=== PATIENT | female | born 1995 | race Caucasian/White ===

== ENCOUNTER 2023-05-16 14:19 | Inpatient (IN) | payer BC, MEDICAID, SELFPAY ==
[2023-05-16] VITALS (14 sets, daily range): BP systolic 103–129; BP diastolic 45–84; PULSE 75–110; RESP 16; TEMP 36.8–37.1; O2SAT 100; BMI 31.1
[2023-05-16] MEDS: OXYTOCIN 30 UNITS/NS 500 ML 30 UNITS/500 ML BAG 999 UNITS IV CONT (14:34)
--- NOTE | 2023-05-16 15:21 | PM.IMHP ---
H&P: HPI History of Present Illness Date/Time: 05/16/23 15:21 Chief Complaint: Labor Narrative: 27 y/o at 38 3/7 weeks here with contractions worsening around 1300. Water broke in car at 1400. Says she had care in [place], and that her due date was 05/27/23. No problems in . Moved to this area 2 weeks ago, has not established care here yet. Says she was taken to [place] a few days ago for false labor and was sent home. Denies drug use. Takes Wellbutrin 300 mg po daily for anxiety. History of hypothyroidism, but has not required medication in a while. She says they have been watching thyroid nodules. I am the chemical reclamation equipment operator physician for walk-in patients today. Review of Systems Review of Systems: All systems reviewed & are unremarkable except as noted in HPI and below PMFSH Past Medical History Medical History Anxiety History of hypothyroidism Surgical History Surgical History History of appendectomy History of cholecystectomy History of laparoscopy History of tonsillectomy and adenoidectomy Meds Vital Signs Vital Signs - 24 hr 05/16/23 14:42 05/16/23 14:45 05/16/23 15:00 Pulse Rate 97 95 88 Blood Pressure 125/76 129/81 125/77 05/16/23 15:15 Pulse Rate 81 Blood Pressure 121/63 Exam Const: Orientation/consciousness: patient oriented x3 Other: Well-developed, well-nourished female in no acute distress. Neck: Thyroid: thyroid normal Lymphatic: no lymphadenopathy noted (in neck, axilla or inguinal nodes) Resp: Effort & Inspection: normal respiratory effort Auscultation: clear to auscultation bilaterally Cardio: Rate: regular rate Rhythm: regular rhythm Heart sounds: S1 normal heart sound present and S2 normal heart sound present GI: Other: ABD: Soft, nontender, gravid. FHR tracing briefly obtained, normal-appearing. : General: Yes no CVA tenderness Other: Cervix completely dilated with gross ROM on admission. Back/Spine/Pelvis: Back: no CVA tenderness Skin: General skin exam: normal color and no rashes or lesions noted Neuro: General: patient oriented x3 Extrem: Other: Extremities: nontender with no edema Psych: Mental Status: mental status grossly normal Affect: normal affect Assessment and Plan Assessment and plan (1) Term : Code(s): Z34.90 - Encounter for supervision of normal , unspecified, unspecified trimester Status: Acute Assessment and Plan: A: IUP at 38 3/7 weeks with labor. P: See delivery note.
--- NOTE | 2023-05-16 15:29 | PM.OBPRVD ---
OB - Delivery Note Procedure Delivery date: 05/16/23 Procedure: Precipitous Induction method: None Delivery monitor: External FHT and External Uterine Route of delivery: Laceration Description: Perineal - 1st Degree Delivery repair: vicryl (3-0) Specimen: Yes (cord blood) Quantitative Blood Loss (ml): 200 Anesthesia type: Local (1% lidocaine) Disposition: PACU Complications: None Narrative: 27 y/o walk-in patient at 38 3/7 weeks gestation who presented to the hospital with contractions beginning at 1300. Meghann broke en route here at 1400. She arrived here at 1419 and was found to have complete dilation with gross ROM. I was called at 1422. She precipitously delivered the 's head to the perineum, followed by the body, at 1429. The placenta delivered spontaneously as well. I arrived, and on exam, a first degree midline perineal laceration was noted. This was infiltrated with 7 mL of 1% lidocaine and reapproximated using 3 0 Vicryl in interrupted figure of eight fashion. Excellent hemostasis resulted as did excellent reapproximation of the normal anatomy. Needle and instrument counts were correct. The patient was taken to recovery room in stable condition. The infant went to the nursery in stable condition. Baby Date of : 05/16/23 Time of : 14:29 Weeks of gestation at delivery: 38 Infant gender: Female Weight (pounds): 6 Weight (ounces): 15 presentation: vertex Placenta delivery description: Spontaneous score one minute: 9 score five minutes: 9
--- NOTE | 2023-05-16 15:36 | P.DS_ITS ---
DS: Admitting Diagnosis Discharge Date 05/18/23 Admitting Diagnosis IUP at term Labor DS: Discharge Diagnosis Discharge Diagnosis (1) (normal spontaneous vaginal delivery): Code(s): O80 - Encounter for full-term uncomplicated delivery Status: Acute OB - DS: Summary OB Procedures : None OB Procedures Intrapartum: Spontaneous Vag Delivery OB Procedures: : None Time Spent with Patient Time attestation: Total time spent providing and/or coordinating discharge services: Discharge Plan Discharge Attending physician on discharge: Thaddeus Gonzalez Discharging Clinician: Thaddeus Gonzalez Patient Disposition: Home, Self-Care Activity: pelvic rest Diet: regular Discharge Instructions: Nothing in the vagina for 6 weeks. Call or return if temperature above 100.4? F, increased abdominal pain, increased vaginal bleeding or any new problems. Stand Alone Forms: General Discharge Information Follow-up/Referrals: Thaddeus Gonzalez MD [Physician] - 6 Weeks Discharge Medications: New ibuprofen 600 mg tablet 600 mg PO Q6H PRN (Reason: cramps) Qty: 30 0RF Continued bupropion HCl [Wellbutrin] 100 mg Tablet 300 mg PO DAILY Date of admission: 05/16/23 14:19 Primary Care Provider: PHYSICIAN,SECURITY COMPLIANCE SPECIALIST Admitting Provider: Thaddeus Gonzalez Attending physician on admission: Thaddeus Gonzalez Condition: Stable
--- NOTE | 2023-05-16 15:48 | LDADM ---
This patient, Stacy Wilson, was admitted to Labor/Delivery/Recovery 106 on 05/16/23 at 14:19. Plans for labor, pain management and were discussed with patient. Patient/family oriented to hospital policies and general routines including ID bracelet, bed and alarms, visiting hours, pain management, procedures, bathroom and other care routines, personal items, smoking policy, room service/diet and guest tray routines, security routines, and visiting hours. Patient/Family are encouraged to report perceived risks to care and to ask questions if they do not understand what they are told or what they should do. See [facility] for further documentation.
[2023-05-16 16:28] LABS: Basophils Absolute Auto 0.1 K/mm3 (0.0-0.1); Basophils Percent Auto 0.3 % (0.2-1.2); Eosinophils Percent Auto 0.1 % (0-4.4); Hemoglobin 11.1 g/dL (12.0-15.0); Immature Granulocyte Absolute 0.07 K/mm3 (0.00-0.031); Immature Granulocyte Percent A 0.5 % (0-0.5); Lymphocytes Absolute Auto 0.99 K/mm3 (0.9-3.2); Lymphocytes Percent Auto 6.4 % (18.3-44.2); Mean Corpuscular HGB Conc 32.6 g/dl (32-36); Mean Corpuscular Volume 91.9 fl (80-100); Mean Platelet Volume 10.4 fl (7.4-10.4); Monocytes Absolute Auto 0.7 K/mm3 (0.1-0.6); Monocytes Percent Auto 4.3 % (2.6-8.5); Neutrophils Absolute Auto 13.8 K/mm3 (1.3-6.7); Neutrophils Percent Auto 88.4 % (45.5-73.1); Platelet Count Result 211 k/mm3 (150-375); Red Cell Distribution Width 12.9 % (11.5-14.5); White Blood Count 15.6 K/mm3 (4.5-10.0)
--- NOTE | 2023-05-16 17:12 | PC.NURSE ---
Patient transferred to post room #291 via wheelchair. Support person present. Oriented to unit, room, information board, rooming in, admission packet and security measures. Patient verbalizes understanding.
[2023-05-16 17:16] LABS: HIV 1/2 Ab P24 Ag Result Negative (Negative)
[2023-05-16 17:27] LABS: Rapid Plasma Reagin Non-Reactive (NonReactive)
[2023-05-16 17:29] LABS: Hepatitis B Surface Antigen Negative (Negative)
[2023-05-16 18:08] LABS: Amphetamine Screen Urine Negative (Negative); Barbiturate Screen Urine Negative (Negative); Benzodiazepines Screen Urine Negative (Negative); Cannabinoid Screen Urine Negative (Negative); Cocaine Screen Urine Negative (Negative); Methadone Screen Urine Negative (Negative); Opiate Screen Urine Negative (Negative); Phencyclidine Screen Urine Negative (Negative)
--- NOTE | 2023-05-16 18:44 | PC.NURSE ---
05/16/[address] Gonsalez called and notified mother's has been received and mother is GBS positive. No new orders received.
[2023-05-17 05:28] LABS: Hematocrit 34.6 % (37.0-47.0); Hemoglobin 11.4 g/dL (12.0-15.0)
[2023-05-17] MEDS: MULTIVIT/MIN/PREN/FOL AC/IRON TABLET 1 TAB PO (07:56)
[2023-05-17] MEDS: DOCUSATE SODIUM 100 MG CAPSULE PO (07:56)
[2023-05-17] MEDS: buPROPion HCL XL (24 HR) 150 MG TABCR 300 MG PO (07:57)
[2023-05-17] MEDS: LANOLIN (LANSINOH) 7.5 GM CREAM 1 APPLIC TOPICAL (07:57)
[2023-05-17 08:00] VITALS: BP 113/64; PULSE 80; RESP 16; TEMP 36.7; O2SAT 100
--- NOTE | 2023-05-17 09:27 | PM.OBPNVD ---
OB - PN: Subj Subjective Date/time seen: 05/17/23 09:27 Narrative: Pain OK. OB - PN: Obj Data Labs 05/17/23 05:20 Labs: Laboratory Results - last 24 hr 05/16/23 05/17/23 16:12 05:20 WBC 15.6 H RBC 3.70 L Hgb 11.1 L 11.4 L Hct 34.0 L 34.6 L MCV 91.9 MCH 30.0 MCHC 32.6 RDW 12.9 Plt Count 211 MPV 10.4 Immature Gran % (Auto) 0.5 Neut % (Auto) 88.4 H Lymph % (Auto) 6.4 L Pershing % (Auto) 4.3 Eos % (Auto) 0.1 Baso % (Auto) 0.3 Lymph # (Auto) 0.99 Pershing # (Auto) 0.7 H Eos # (Auto) 0.0 Baso # (Auto) 0.1 Abs Immat Gran (auto) 0.07 H Absolute Neuts (auto) 13.8 H Absolute Nucleated RBC 0.0 Nucleated RBC % 0.0 Urine Opiates Screen Negative Urine Methadone Screen Negative Ur Barbiturates Screen Negative Ur Phencyclidine Scrn Negative Ur Amphetamine Screen Negative U Benzodiazepines Scrn Negative Urine Cocaine Screen Negative U Cannabinoids Screen Negative RPR Non-reactive Hep Bs Antigen Negative HIV 1&2 Ab/P24 Ag 4thGn Negative Rubella IgG Antibody 20.0 Blood Type O Negative O Negative Antibody Screen Positive TNP Antibody Identification Passive Due to RH Imm Glob Antigen Identification Cancelled GEOVANNA, IgG Interpret Not Performed GEOVANNA, Poly Interpret Neg GEOVANNA, Complement Interp Not Performed Screen Negative Baby's Blood Type O pos Baby's GEOVANNA Negative Doses of RhIg Required 1 OB - PN A/P Plan day: 1 Comments: A: PPD#1, doing well. P: Routine care. Exam Psych: Other: AVSS ABD soft, nontender, fundus firm EXT nontender
[2023-05-17 13:00] VITALS: BP 114/63; PULSE 72; RESP 16; TEMP 36.5; O2SAT 98
[2023-05-17 18:45] VITALS: BP 125/65; PULSE 78; RESP 16; TEMP 36.5
[2023-05-17] MEDS: RHO(D) IMMUNE GLOBULIN 300 MCG/2 ML SYRINGE IM (19:23)
[2023-05-18] MEDS: TETANUS,DIPHTHERIA,AC PERTUSSIS ADULT (0.5 ML) BOOSTRIX IM (05:19)
[2023-05-18] MEDS: DOCUSATE SODIUM 100 MG CAPSULE PO (08:11)
[2023-05-18] MEDS: MULTIVIT/MIN/PREN/FOL AC/IRON TABLET 1 TAB PO (08:11)
[2023-05-18] MEDS: buPROPion HCL XL (24 HR) 150 MG TABCR 300 MG PO (08:11)
[2023-05-18 08:35] VITALS: BP 119/70; PULSE 70; RESP 16; TEMP 36.6; O2SAT 100
--- NOTE | 2023-05-18 08:52 | PM.OBPNVD ---
OB - PN: Subj Subjective Date/time seen: 05/18/23 08:52 Narrative: Pain OK. Would like to go home. OB - PN: Obj Data Labs 05/17/23 05:20 Labs: Laboratory Results - last 24 hr 05/17/23 05:20 Blood Type O Negative Antibody Screen TNP Screen Negative Baby's Blood Type O pos Baby's GEOVANNA Negative Doses of RhIg Required 1 OB - PN A/P Plan day: 2 Comments: A: PPD#2, doing well. P: Home to f/u 6 weeks. Exam Psych: Other: AVSS ABD soft, nontender, fundus firm EXT nontender
--- NOTE | 2023-05-18 11:58 | PC.NURSE ---
Patient discharged home with a breast pump, form completed and patient given the pink copy. Forms and copy of patient face sheet placed in office.
--- NOTE | 2023-05-18 15:51 | PC.NURSE ---
1110 Introductions were made, then consulted with patient to assess needs related to . Mother stated she has blister to right breast. Reviewed proper latch on and removal of from the breast. Gave mom Tendercare Hydrogel to assist with healing and discussed comfort measures for healing with a warm and wet washcloth to rinse breast, then leave open to air-dry as needed. Also suggested expression of milk to promote healing of the breast/nipple tissue and the use of lanolin. Reviewed good handwashing when or touching the breast/nipples to prevent infection. 1120 Mother led the conversation with her experience and plan to feed her so far and her ability to independently latch infant optimally without discomfort. Reminded parents to use good handwashing technique to prevent infection. Mother is feeding appropriately for growth of infant and understands stimulating infant to eat if needed. Infant has had appropriate feedings in the last 24 hours meets the outcomes for weight, output and jaundice at this time. Mother states she is confident to continue effectively her infant at home, when to call for assistance and denies any additional assistance or education at this time. Reinforced understanding of milk production, transition of milk, signs of adequate intake, transition of stool, prevention/relief of engorgement, responsive watching for feeding cues, the different methods of stimulating infant to breastfeed 2-3 hours after the start of the last feeding, community resources, medication information reviewed per [facility] and when to call a provider using the resource of the mom and baby guide/[facility] website. Mother voiced understanding of the education shared. Reported to the primary RN. Encouraged understanding of the benefits of skin to skin (demonstrating unwrapping and placing upright on her chest), stimulating with massage touch, changing positions to encourage wakefulness, how to watch for early feeding cues, responsive feeding, feeding on demand (aiming for 8-12 times in 24 hours, about every 2-3 hours), milk production, building/maintaining a milk supply, duration of feeding, signs of adequate intake/output and how to record on the feeding sheet. Education given to mother of how to visualize suck/swallow ratios and listen for drinking at the breast. Infant was [able/unable] to maintain latch without discomfort to mother. Nipple care reviewed with optimal latch and good positioning. Resources provided for inpatient/outpatient with [facility], and the mom/baby guide.
[2023-05-19 10:35] VITALS: BP 122/65; PULSE 81; RESP 18; TEMP 36.9; O2SAT 100
== END 2023-05-18 11:58 | disposition home or self-care (01) | DRG 807 ==
LOC: ANHLDR 15:38 → ANHOB2 17:17
PROVIDERS: Admitting Provider Obstetrics & Gynecology; Visit Provider Obstetrics & Gynecology
DX: O62.3 Precipitate labor (principal); Z37.0 Single live birth; O99.344 Other mental disorders complicating childbirth; F41.9 Anxiety disorder, unspecified; O99.284 Endocrine, nutritional and metabolic diseases complicating childbirth; E03.9 Hypothyroidism, unspecified; O70.0 First degree perineal laceration during delivery; Z3A.38 38 weeks gestation of pregnancy
CPT/HCPCS: 36415; 80307; 85014; 85018; 85025; 85461; 86592; 86703; 86762; 86850; 86880; 86900; 86901; 86902; 87340; 90384; 90715; A9270; G0432; J2590; J2790

== ENCOUNTER 2023-09-10 11:18 | Outpatient (CLI) | payer MEDICAID, SELFPAY ==
[2023-09-10 19:11] LABS: Total Triiodothyronine (T3) 1.11 NG/ML (0.97-1.69)
== END 2023-09-10 11:19 | disposition home or self-care (01) ==
LOC: ANHGOSHLAB 11:19
PROVIDERS: PCP Emergency Medicine; Visit Provider Emergency Medicine
DX: E04.1 Nontoxic single thyroid nodule (principal); R94.6 Abnormal results of thyroid function studies
CPT/HCPCS: 36415; 84439; 84443; 84480

== ENCOUNTER 2023-10-14 13:53 | Outpatient (CLI) | payer BC, SELFPAY ==
--- NOTE | ~2023-10-14 | XR_ITS ---
EXAMINATION: XR knee LT min 4V DATE: 10/14/2023 14:24 INDICATION: Unspecified tear of unspecified meniscus. TECHNIQUE: 4 views of left knee were obtained. COMPARISON: None. FINDINGS: Bone alignment is normal. No fracture. Joint spaces are normal. No knee joint effusion. IMPRESSION: 1. Normal left knee. Reviewed, dictated and finalized at location A. F LEG OPERATOR IMPRESSION: 1. Normal left knee.
== END 2023-10-14 13:54 | disposition home or self-care (01) ==
PROVIDERS: PCP Emergency Medicine; Visit Provider Orthopaedic Surgery
DX: S83.207A Unspecified tear of unspecified meniscus, current injury, left knee, initial encounter (principal)
CPT/HCPCS: 73564

== ENCOUNTER 2024-03-03 11:05 | Outpatient (CLI) | payer OTHER, SELFPAY ==
[2024-03-03 11:30] LABS: Basophils Percent Auto 1.1 % (0.2-1.2); Eosinophils Absolute Auto 0.1 K/mm3 (0-0.3); Eosinophils Percent Auto 1.3 % (0-4.4); Hemoglobin 12.8 g/dL (12.0-15.0); Immature Granulocyte Absolute 0.01 K/mm3 (0.00-0.031); Immature Granulocyte Percent A 0.3 % (0-0.5); Lymphocytes Absolute Auto 1.36 K/mm3 (0.9-3.2); Mean Corpuscular Hemoglobin 26.6 pg (26-34); Mean Platelet Volume 9.2 fl (7.4-10.4); Monocytes Absolute Auto 0.3 K/mm3 (0.1-0.6); Monocytes Percent Auto 6.9 % (2.6-8.5); Neutrophils Absolute Auto 2.1 K/mm3 (1.3-6.7); Neutrophils Percent Auto 54.4 % (45.5-73.1); Platelet Count Result 219 k/mm3 (150-375); Red Blood Count 4.82 M/mm3 (4.2-5.4); Red Cell Distribution Width 14.6 % (11.5-14.5); White Blood Count 3.8 K/mm3 (4.5-10.0)
[2024-03-03 11:40] LABS: Alanine Aminotransferase 10 U/L (6-35); Albumin Level 4.5 g/dL (3.5-5.1); Alkaline Phosphatase 54 U/L (38-126); Anion Gap 7 mmol/L (4-12); Aspartate Amino Transferase 19 U/L (14-36); Bilirubin,Total 0.8 mg/dL (0.2-1.3); Blood Urea Nitrogen 13 mg/dL (7-17); Calcium 9.2 mg/dL (8.4-10.2); Carbon Dioxide 26 mmol/L (22-30); Chloride 108 mmol/L (98-107); Cholesterol 156 mg/dL (0-200); Estimated Glomerular Filt Rate > 60; Glucose 82 mg/dL (65-110); HDL Direct 54 mg/dL; Potassium 3.9 mmol/L (3.4-5.0); Sodium 141 mmol/L (137-145); Triglycerides 66 mg/dL (<150)
[2024-03-03 11:43] LABS: Hemoglobin A1C 4.7 % (<5.7)
[2024-03-03 11:53] LABS: LDL Cholesterol Direct 94 mg/dL
== END 2024-03-03 11:06 | disposition home or self-care (01) ==
LOC: ANHLAB 11:07
PROVIDERS: PCP Emergency Medicine; Visit Provider Emergency Medicine
DX: R42 Dizziness and giddiness (principal); R73.01 Impaired fasting glucose; Z86.39 Personal history of other endocrine, nutritional and metabolic disease
CPT/HCPCS: 36415; 80053; 80061; 83036; 84443; 85025

== ENCOUNTER 2024-03-03 11:09 | Outpatient (CLI) | payer OTHER, SELFPAY ==
[2024-03-03 12:22] LABS: HIV 1/2 Ab P24 Ag Result Negative (Negative)
[2024-03-03 12:32] LABS: Hepatitis B Surface Antigen Negative (Negative)
[2024-03-03 12:38] LABS: HAV RESULT Negative (Negative); Hepatitis B Core IgM Result Negative (Negative)
[2024-03-03 12:49] LABS: Hepatitis C Virus Antibody Negative (Negative)
[2024-03-03 21:02] LABS: Rapid Plasma Reagin Non-Reactive (NonReactive)
== END 2024-03-03 11:10 | disposition home or self-care (01) ==
LOC: ANHLAB 11:10
PROVIDERS: PCP Emergency Medicine; Visit Provider Student in an Organized Health Care Education/Training Program
DX: Z11.3 Encounter for screening for infections with a predominantly sexual mode of transmission (principal)
CPT/HCPCS: 36415; 80053; 80061; 80074; 83036; 84443; 85025; 86592; 86695; 86696; 86703; G0432

== ENCOUNTER 2024-04-30 12:48 | Emergency (ER) | payer OTHER, SELFPAY ==
--- NOTE | ~2024-04-30 | XR_ITS ---
EXAMINATION: XR tibia fibula RT 2V, XR ankle RT min 3V DATE: 04/30/2024 13:18 INDICATION: Right lower leg pain post twisting injury TECHNIQUE: 1. Anteroposterior and lateral views of the right tibia and fibula were obtained. 2. Anteroposterior, oblique, mortise, and lateral views of the right ankle were obtained. COMPARISON: None. FINDINGS: Alignment is normal. No acute fracture. Small corticated ossicle at the tip of the medial malleolus w hich could represent a chronic nonunited avulsion fracture fragment or more likely. Endoscopy related to chronic deltoid ligament sprain. Joint spaces are normal. No right knee or ankle joint effusions. Soft tissues are unremarkable. IMPRESSION: 1. Small chronic ossicle at the tip the medial malleolus likely sequela of trauma. No acute osseous a bnormality at the right lower leg or ankle. Reviewed, dictated and finalized at location A. IMPRESSION: 1. Small chronic ossicle at the tip the medial malleolus likely sequela of trau ma. No acute osseous abnormality at the right lower leg or ankle.
--- NOTE | 2024-04-30 12:55 | ED.GENADULT ---
HPI - General Adult General Chief complaint: Extremity Injury, Lower Stated complaint: right ankle injury Time Seen by Provider: 04/30/24 12:50 History of Present Illness HPI narrative: Patient is a 28-year-old female who presents to the emergency department this morning complaining of right ankle pain. Patient believes that she may have rolled her ankle a few days ago as she heard a pop. She tried with fat see if the pain would go away, however, patient states that she continues to have pain that sometimes shoots up her right leg. Patient has been walking on her right foot and has been able to bear weight. She denies any additional injuries and denies any additional symptoms at this time. Related Data Allergies Allergy/AdvReac Type Severity Reaction Status Date / Time No Known Allergies Allergy Verified 04/30/24 13:08 Review of Systems Review of Systems: All systems are reviewed and are negative unless stated otherwise in the HPI. [facility] Past Medical History Medical History Anxiety Encounter for screening examination for sexually transmitted disease Endometriosis History of hypothyroidism Surgical History Surgical History History of appendectomy History of cholecystectomy History of laparoscopy History of nasal surgery Deviated septum 07/2022 History of tonsillectomy and adenoidectomy Family History Family History Grandparent Diabetes mellitus Heart disease Social History Social History Smoking status: Never smoker Alcohol intake: never Substance use: never Do You Feel Safe in your Home?: Yes Lack of Transportation: No Lack of Food: Never True Current Housing: I Have Housing Concerned About Future Housing: No Difficulty Paying Gas/Electric Bills: No Difficulty Paying for Meds: No Currently Unemployed: No Education: High School Diploma/GED Difficulty w/ Childcare or Family Care: No Living arrangements: with family Occupation/Education: occupation 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 HEENT: PERRL, no rhinorrhea, no post nasal drip, oropharynx clear. Cardiovascular: Regular rate and rhythm, no murmurs, rubs or gallops, no peripheral edema. Respiratory: Clear to auscultation bilaterally, no tachypnea, no wheezing, no rhonchi, no rubs, no respiratory distress. Abdomen: Soft, nontender, nondistended, no rebound, no guarding, no peritoneal signs. Musculoskeletal: No joint swelling or deformity, normal muscle tone, Tenderness to palpation over the posterior aspect of the right medial malleoli, no tenderness palpation at the base of the 5th metatarsal, no tenderness to palpation over the mid foot. Skin: No rashes or petechia, no signs of infection. Neurological: Alert and oriented to person, place, and time. Follows all commands. No focal deficits, speech is clear and fluent. Course Vital Signs Vital signs: Vital Signs Temperature 97.7 F 04/30/24 13:05 Pulse Rate 71 04/30/24 13:05 Respiratory Rate 18 04/30/24 13:05 Blood Pressure 111/70 04/30/24 13:05 Pulse Oximetry 100 04/30/24 13:05 Oxygen Delivery Room Air 04/30/24 13:05 Temperature 97.7 F 04/30/24 13:05 Pulse Rate 71 04/30/24 13:05 Respiratory Rate 18 04/30/24 13:05 Blood Pressure 111/70 04/30/24 13:05 Pulse Oximetry 100 04/30/24 13:05 Oxygen Delivery Room Air 04/30/24 13:05 Medical Decision Making MDM Narrative Medical decision making narrative: The patient was evaluated by myself in the emergency department. History is obtained from patient who is an independent histo
[2024-04-30 13:05] VITALS: BP 111/70; PULSE 71; RESP 18; TEMP 36.5; O2SAT 100
== END 2024-04-30 14:02 | disposition home or self-care (01) ==
PROVIDERS: Emergency Provider Emergency Medicine; PCP Emergency Medicine
DX: S93.401A Sprain of unspecified ligament of right ankle, initial encounter (principal); S82.51XA Displaced fracture of medial malleolus of right tibia, initial encounter for closed fracture; F41.9 Anxiety disorder, unspecified; E03.9 Hypothyroidism, unspecified; X50.0XXA Overexertion from strenuous movement or load, initial encounter
CPT/HCPCS: 73590; 73610; 99284

== ENCOUNTER 2024-07-15 10:25 | Emergency (ER) | payer BC, OTHER, SELFPAY ==
--- NOTE | ~2024-07-15 | CT_ITS ---
EXAMINATION: CT brain wo con DATE: 07/15/2024 11:47 INDICATION: Headache TECHNIQUE: Computed tomography (CT) of the head was performed without intravenous contrast. Sagittal and coronal reconstructions were performed. The mA was adjusted according to patient size. Iterative reconstruction technique was employed. The dose-length product was 605.33 mGy-cm. COMPARISON: None FINDINGS: No acute intracranial hemorrhage, acute infarction or abnormal extra axial fluid collection. Ventricl es are normal and symmetric. No mass/mass effect. The orbits, paranasal sinuses and mastoid air cells are normal. IMPRESSION: 1. Normal head CT. Reviewed, dictated and finalized at location B. IMPRESSION: 1. Normal head CT.
[2024-07-15 10:27] VITALS: BP 132/69; PULSE 84; RESP 16; TEMP 36.3; O2SAT 100
--- NOTE | 2024-07-15 11:14 | PC.NURSE ---
Pt reports she had a sinus infection and covid 2 weeks ago and has had headache since.
--- NOTE | 2024-07-15 11:27 | ED.HA ---
HPI - Headache General Chief Complaint: Headache Stated Complaint: headache Time Seen by Provider: 07/15/24 11:13 Source: patient Mode of arrival: ambulatory Limitations: no limitations History of Present Illness HPI Narrative: Patient is a 28-year-old female who presents to the ED with report of a headache. Patient reports she has had a fairly constant headache for the last 2 weeks. She describes it as a band around her head and radiates diffusely throughout her head. She has history of migraines when she was in high school, but states it has been over 10 years since she has had one. She has been taking Tylenol and ibuprofen at home with minimal temporary relief. Took 800mg ibuprofen around 7am this morning. Reports photophobia, phonophobia, nausea. Denies vision changes, fevers, head injury. Related Data Allergies Allergy/AdvReac Type Severity Reaction Status Date / Time No Known Allergies Allergy Verified 07/15/24 10:26 Review of Systems Review of Systems: All systems reviewed & are unremarkable except as noted in HPI. All systems reviewed & are unremarkable except as noted in HPI and below PMFSH Past Medical History Medical History Anxiety Encounter for screening examination for sexually transmitted disease Endometriosis History of hypothyroidism Right ankle pain Surgical History Surgical History History of appendectomy History of cholecystectomy History of laparoscopy History of nasal surgery Deviated septum 07/2022 History of tonsillectomy and adenoidectomy Family History Family History Grandparent Diabetes mellitus Heart disease Social History Social History Smoking status: Never smoker Alcohol intake: never Substance use: never Do You Feel Safe in your Home?: Yes Lack of Transportation: No Lack of Food: Never True Current Housing: I Have Housing Concerned About Future Housing: No Difficulty Paying Gas/Electric Bills: No Difficulty Paying for Meds: No Currently Unemployed: No Education: High School Diploma/GED Difficulty w/ Childcare or Family Care: No Living arrangements: with family Occupation/Education: occupation Additional occupation/education comments: auto parts clerk Gender identity (if verbalized by the patient): Female Spiritual care concerns: No Exam Narrative: GENERAL: Well appearing, well-nourished, non-toxic, in no acute distress. HEAD: Normocephalic, atraumatic. EYES: PERRL/EOMI, conjunctiva clear. No nystagmus. NECK: Supple. Normal ROM. No meningeal signs. RESPIRATORY: Airway patent, respirations nonlabored. Clear to auscultation bilaterally, no rales, rhonchi, wheezing. CARDIOVASCULAR: Regular rate and rhythm MUSCULOSKELETAL: Moves all extremities. No gross deformities. SKIN: Warm, dry, normal color. NEURO: A&O X3. Speech clear. Cranial nerves II-XII grossly intact. Steady gait. No ataxic movements. No focal deficits. PSYCHIATRIC: Appropriate mood and affect. Normal interaction. Course Vital Signs Vital signs: Vital Signs Temperature 97.4 F L 07/15/24 10:27 Pulse Rate 84 07/15/24 10:27 Respiratory Rate 16 07/15/24 10:27 Blood Pressure 132/69 07/15/24 10:27 Pulse Oximetry 100 07/15/24 10:27 Temperature 97.4 F L 07/15/24 10:27 Pulse Rate 80 07/15/24 14:07 Respiratory Rate 18 07/15/24 14:07 Blood Pressure 120/66 07/15/24 14:07 Pulse Oximetry 97 07/15/24 14:07 MDM - Headache MDM Narrative Medical decision making narrative: Patient's headache was not sudden in onset or maximal in severity. There are no focal neurological deficits on exam. Subarachnoid hemorrhage is felt to be unlikely at this time. CT brain negative. There is no history of fever and n
[2024-07-15] MEDS: SODIUM CHLORIDE 0.9% IV 1,000 ML 999 ML IV CONT (12:10)
[2024-07-15] MEDS: ACETAMINOPHEN 500 MG TABLET 1000 MG PO (12:11)
[2024-07-15] MEDS: METOCLOPRAMIDE HCL INJ 10 MG/2 ML VIAL IV PUSH (12:11)
[2024-07-15] MEDS: diphenhydrAMINE HCl INJ 50 MG/ML VIAL 25 MG IV PUSH (12:11)
[2024-07-15] MEDS: dexAMETHasone SOD PHOS INJ 10 MG/ML 1 ML VIAL IV PUSH (12:12)
[2024-07-15] MEDS: KETOROLAC 30 MG/ML VIAL (*BKC) IV PUSH (13:57)
[2024-07-15 14:07] VITALS: BP 120/66; PULSE 80; RESP 18; O2SAT 97
== END 2024-07-15 14:09 | disposition home or self-care (01) ==
PROVIDERS: Emergency Provider Physician Assistant; PCP Emergency Medicine
DX: G43.909 Migraine, unspecified, not intractable, without status migrainosus (principal); E03.9 Hypothyroidism, unspecified; N80.9 Endometriosis, unspecified; Z90.49 Acquired absence of other specified parts of digestive tract
CPT/HCPCS: 70450; 96361; 96374; 96375; 99284; A9270; J1100; J1200; J1885; J2765; J7030

== ENCOUNTER 2024-09-16 12:47 | Outpatient (CLI) | payer OTHER, SELFPAY ==
--- NOTE | 2024-09-16 13:00 | ECHO_ITS ---
Patient Info Name: Stacy Wilson Age: 28 years : 1995 Gender: Female Ht: 67 in Wt: 160 lbs BSA: 1.86 m2 HR: 67 bpm BP: 117 / 64 mmHg Technical Quality: Good Exam Date: 09/16/2024 1:13 PM Exam Location: Echo Lab Patient Status: Outpatient Admit Date: 09/16/2024 Staff Ordering Physician: Jarred Pearl MD Wheat Washer: Allison Jenkins RDCS Attending Provider: Jarred Pearl MD Referring Physician: Dae DING; Exam Type: CA echo doppler color flow Study Info Indications R42 - Dizziness and giddiness Complete two-dimensional, color flow and Doppler transthoracic echocardiogram is performed. Strain analysis performed. Summary 1. Complete two-dimensional, color flow and Doppler transthoracic echocardiogram is performed. 2. Left ventricular chamber dimension is normal. 3. Left ventricular systolic function is normal, estimated at 60-65%. 4. The left ventricular diastolic function is normal. 5. E/e' 5 is not elevated. 6. Global longitudinal strain is normal at -22.3%. 7. There is trace tricuspid valve regurgitation. 8. No pulmonary hypertension, estimated pulmonary arterial systolic pressure is 25 mmHg. Left Ventricle E/e' 5 is not elevated. Global longitudinal strain is normal at -22.3%. Left ventricular chamber dimension is normal. Left ventricular systolic function is normal, estimated at 60-65%. The left ventricular diastolic function is normal. Right Ventricle Right ventricular systolic function is normal and with normal TAPSE 2.3 cm. Right ventricular chamber dimension is normal. Left Atria Left atrial chamber dimension is normal. Right Atria Right atrial chamber dimension is normal. Aortic Valve The aortic valve is trileaflet. There is no aortic valve stenosis. There is no aortic valve regurgitation. Pulmonic Valve There is no pulmonic regurgitation. Mitral Valve There is no mitral valve stenosis. There is no mitral valve regurgitation. Tricuspid Valve There is trace tricuspid valve regurgitation. No pulmonary hypertension, estimated pulmonary arterial systolic pressure is 25 mmHg. Pericardium/Pleural There is no pericardial effusion. Inferior Vena Cava Normal inferior vena cava with >50% collapse upon inspiration consistent with normal right atrial pressure, 5 mmHg. Aorta The aortic root size at the sinus of Valsalva is normal. Left Ventricular Outflow Tract Name Value Normal LVOT 2D LVOT Diameter 2.0 cm LVOT Doppler LVOT Peak Gradient 4 mmHg LVOT Mean Gradient 2 mmHg LVOT VTI 20 cm LVOT VTI/AV VTI Ratio 1.1 LVOT Stroke Volume 66 ml LVOT CO 5.1 l/min LVOT CI 2.7 l/min/m2 Pulmonic Valve Name Value Normal RVOT Doppler RVOT Peak Gradient 2 mmHg PV Doppler PV Peak Gradient 4 mmHg Mitral Valve Name Value Normal MV Doppler MV Decel [place] 418 cm/s2 MV PHT 58 ms MV Area (PHT) 3.8 cm2 4.0-5.0 MV Diastolic Function MV E Peak Velocity 83 cm/s MV A Peak Velocity 50 cm/s MV E/A 1.7 MV Decel Time 199 ms Tricuspid Valve Name Value Normal TV Regurgitation Doppler TR Peak Velocity 225 cm/s TR Peak Gradient 16 mmHg Estimated PAP/RSVP RA Pressure 5 mmHg <=5 PA Systolic Pressure 25 mmHg <36 RV Systolic Pressure 25 mmHg <36 Aorta Name Value Normal Ascending Aorta Ao Root Diameter (MM) 3.1 cm Ao Root Diam Index (MM) 1.7 cm/m2 Aortic Valve Name Value Normal AV Doppler AV Peak Velocity 103 cm/s AV Peak Gradient 4 mmHg AV Mean Gradient 2 mmHg AV VTI 19 cm AV Area (Cont Eq VTI) 3.6 cm2 >=3.0 AV Area (Cont Eq Hakan) 3.1 cm2 AV Regurgitation 2D LVOT Area 3.3 cm2 Ventricles Name Value Normal LV Dimensions 2D/MM IVS Diastolic Thickness (2D) 1.0 cm 0.6-1.0 IVS Diastole Thickness (MM) 0.8 cm 0.6-0.9 LVID Diastole (2D) 3.6 cm 3.8-5.2 LVID Diastole (MM) 5.1 cm 3.8-5.2 LVIW Diastolic Thickness (2D) 0.8 cm 0.6-0.9 LVIW Diastolic Thickness (MM) 0.6 cm 0.6-0.9 LVID Systole (2D) 2.5 cm 2.2-3.5 LVID Systole (MM) 2.8 cm 2.2-3.5 LVOT Diameter 2.0 cm LV Mass (2D Cubed) 93.88 g 67.00-162.00 LV Mass Index (2D Cubed) 50 g/m2 43-95 Relative Wall Thickness (2D) 0.44 LV Mass (MM Cubed) 113.91 g 67.00-162.00 LV Mass Index (MM Cubed) 61 g/m2 43-95 Relative Wall Thickness (MM) 0.22 LV Fractional Shortening/Ejection Fraction 2D/MM LV Fractional Shortening (2D) 30 % 27-45 LV Fractional Shortening (MM) 46 % 27-45 LV EF (MM Teicholz) 77 % 54-74 LV EF (2D Teicholz) 58 % 54-74 LV Diastolic Volume (4C MOD) 61 ml LV EF (4C MOD) 60 % LV Diastolic Volume (2C MOD) 83 ml LV EF (2C MOD) 70 % LV Diastolic Volume (BP MOD) 71 ml 46-106 LV Diastolic Volume Index (BP MOD) 38 ml/m2 29-61 LV Systolic Volume (BP MOD) 25 ml 14-42 LV Systolic Volume Index (BP MOD) 13 ml/m2 8-24 LV EF (BP MOD) 65 % 54-74 LV Diastolic Length (4C) 7.6 cm LV Systolic Length (4C) 6.1 cm LV Stroke Volume (4C MOD) 37 ml Atria Name Value Normal LA Dimensions LA Dimension (MM) 3.5 cm 2.7-3.8 LA Volume (4C A-L) 28 ml LA Volume (BP A-L) 36 ml RA Dimensions RA Area (4C) 13.1 cm2 <=18.0 EchoPAC Name Value Normal AutoEF LVCO_BiP_Q (Wnnb8HLS) 4.1 l/min LVEF_BiP_Q (Bsac0VJV) 63 % LVSV_BiP_Q (Ilod2ZSH) 60 ml LVVED_BiP_Q (Oclq9HGH) 95 ml LVVES_BiP_Q (Pgtf9VEC) 36 ml HR_4Ch_Q (Btuo9ECX) 77 bpm LVCO_4Ch_Q (Kobo9EVT) 3.6 l/min LVEF_4Ch_Q (Rjmo6MOX) 56 % LVLd_4Ch_Q (Huvt1XUS) 8.0 cm LVLs_4Ch_Q (Zglw6ELX) 6.2 cm LVSV_4Ch_Q (Ummx0BZA) 47 ml LVVED_4Ch_Q (Yisb6LLX) 83 ml LVVES_4Ch_Q (Vqgt1ETD) 36 ml HR_2Ch_Q (Wgjq1ZVB) 60 bpm LVCO_2Ch_Q (Reqp0NMC) 4.6 l/min LVEF_2Ch_Q (Haas3PVU) 69 % LVLd_2Ch_Q (Buts8CUY) 8.1 cm LVLs_2Ch_Q (Fjyd1PAM) 6.1 cm LVSV_2Ch_Q (Ousj3IXH) 76 ml LVVED_2Ch_Q (Yean0TTC) 111 ml LVVES_2Ch_Q (Eayp6LUW) 35 ml YELENA AA peak sys SL (AWMA) 28.5 % AAS peak sys SL (AWMA) 26.9 % AI peak sys SL (AWMA) 36.5 % AL peak sys SL (AWMA) 22.8 % AP peak sys SL (AWMA) 29.5 % peak sys SL (AWMA) 23.2 % AVC (AWMA) 380 ms BA peak sys SL (AWMA) 18.3 % BAS peak sys SL (AWMA) 14.7 % BI peak sys SL (AWMA) 24.0 % BL peak sys SL (AWMA) 16.4 % BP peak sys SL (AWMA) 20.7 % BS peak sys SL (AWMA) 16.1 % G peak SL(A2C) (AWMA) 26.1 % G peak SL(A4C) (AWMA) 19.4 % G peak SL(APLAX) (AWMA) 21.7 % G peak SL(Avg) (AWMA) 22.4 % MA peak sys SL (AWMA) 23.5 % MAS peak sys SL (AWMA) 19.4 % ME peak sys SL (AWMA) 26.0 % ML peak sys SL (AWMA) 18.7 % MP peak sys SL (AWMA) 20.5 % MS peak sys SL (AWMA) 22.4 % Report Signatures
== END 2024-09-16 12:48 | disposition home or self-care (01) ==
LOC: ANHCARD 12:50
PROVIDERS: PCP Emergency Medicine; Visit Provider Emergency Medicine
DX: R42 Dizziness and giddiness (principal)
CPT/HCPCS: 93306

== ENCOUNTER 2025-07-24 22:31 | Emergency (ER) | payer OTHER, SELFPAY ==
--- OUTSIDE RECORDS SUMMARY | 2022-12-02 07:59 | XMS_ITS | Continuity of Care Document ---
Author Organization [facility] Address [address] [place] [address] Phone Care Team Providers Care Aesthetician Name Role Phone Paolo Waters Unavailable Unavailable Procedures Procedure Date Offic/outpt E&m Estab Mod-hi 2 22 Services provided in an urgent care [facility] er Flu Rapid Immunoas; Flu Rapid Immunoas; Quidel Mara 2 SARS Antigen STEPH test Oct Offic/outpt E&m Estab Mod-hi 2 22 Services provided in an urgent care [facility] er Quidel Mara 2 SARS Antigen STEPH test Sep Flu Rapid Immunoas; Flu Rapid Immunoas; Offic/outpt E&m Estab Low-mod 2 Services provided in an urgent care cent er Quidel Mara 2 SARS Antigen STEPH test Jul Offic/outpt E&m Estab Mod-hi 2 22 Services provided in an urgent care cent er Offic/outpt E&m Estab Low-mod 2 Services provided in an urgent care cent er Offic/outpt E&m Estab Low-mod 2 Services provided in an urgent care cent er Quidel Mara 2 SARS Antigen STEPH test May Offic/outpt E&m Estab Low-mod 2 Services provided in an urgent care [facility] er Offic/outpt E&m Estab Low-mod 2 Services provided in an urgent care [facility] Office Visit Agt-immunassay Dir Obs; Strep 2 COVID-19 In House Handl/convey Specmn-offic To L 22 Offic/outpt E&m Estab Low-mod 2 Services provided in an urgent care [facility] Office Visit 022 Inj Ketorolac Tromethamine Per 15 Mg Jan Therapeutic, Prophylactic, Or Diagnostic Inj Sub Q Offic/outpt E&m Estab Mod-hi 22 Services provided in an urgent care [facility] Office Visit [facility] Indivdual Enrollment COVID-19 In House Offic/outpt E&m Estab Low-mod 1 Services provided in an urgent care [facility] er COVID-19 In House Offic/outpt E&m Estab Mod-hi 2 21 Services provided in an urgent care [facility] er Handl/convey Specmn-offic To L 20 Offic/outpt E&m Estab Mod-hi 2 20 Services provided in an urgent care [facility] er Offic/outpt E&m New Mod Sever 9 Services provided in an urgent care [facility] er Advance Directives Directive Yes / No Effective Date File Name No Information Encounters Encounter Description Practice Location Reason(s) For Visit Diagnoses Date Provider Providers Copied on Encounter [facility], [address], [place], [place], [id number] , [place] tel:[phone] [facility] No Information 3 Heath GUILLEN Paolo. [address], [address], [place], [place], [id number], [place]. tel:[phone] [facility], [address], [place], [place], [id number] , [place] tel: [phone] [facility] Pain in throat 3 No Information Offic/outpt E&m Estab Mod-hi 2 [facility], [address], [place], [place], [id number] , [place] tel: [phone] [facility] Congestion/ rhinitis (chief complaint) URI with cough and congestion 2 Green THREAD GRINDER Bernie. [address], [place], [place], [id number], [place]. tel:[phone] Referring Provider: Bernie GUILLEN, [address], [place], [place], [address] [place] [address] . tel:[phone] Offic/outpt E&m Estab Mod-wi 2 [facility], [address], [place], [place], [id number] , [place] tel: [phone] [facility] COVID-19 Evaluation (chief complaint) Cough, unspecifiedCon tact with and (suspected) exposure to COVID-19Influe nza A 2 Green THREAD GRINDER Bernie. [address], [place], [place], [address] [place] [address], [place]. tel:[phone] Referring Provider: Bernie GUILLEN, [address], [place], [place], [address] [place] [address] . tel:[phone] Offic/outpt E&m Estab Low-mod [facility], [address], [place], [place], [id number] , [place] tel: [phone] [facility] COVID-19 Evaluation (chief complaint) Contact with and (suspected) exposure to COVID-19Acute coughViral infection 2 Joe THREAD GRINDER Paolo. [address], [place], [address], [place]. tel:[phone] Referring Provider: Paolo GUILLEN, [address], [place], [address] . tel:[phone] Offic/outpt E&m Estab [facility] 2 [facility], [address], [place], [place], [id number] , [place] tel: [phone] [facility] COVID-19 Evaluation (chief complaint) Contact with and (suspected) exposure to COVID-19COVID- 19 2 Heath Boone. [address], [address], [place], [place], [address], [place]. tel:[phone] Referring Provider: Paolo GUILLEN, [address], [place], [address] . tel:[phone] Offic/outpt E&m Estab [facility], [address], [place], [place], [id number] , [place] tel: [phone] [facility] Sinusitis, bacterialOther specified bacterial agents as the cause of diseases classified elsewhere 2 No Information Offic/outpt E&m Estab [facility], [address], [place], [place], [address] , [place] tel: [phone] [facility] Vaginal bleeding (chief complaint) DysmenorrheaNa usea 2 John Gibbs. [address], [address], [place], [place], [address], [place]. tel:[phone] Referring Provider: Bernie GUILLEN, [address], [place], [address] . tel:[phone] Offic/outpt E&m Estab [facility], [address], [place], [place], [id number] , [place] tel: [phone] [facility] COVID-19 Evaluation (chief complaint) Contact with and (suspected) exposure to COVID-19 May- 2 Heath GUILLEN Paolo. [address], [place], [address], [place]. tel:[phone] Referring Provider: Paolo Heath GUILLEN, [address], [place], [address] . tel:[phone] Offic/outpt E&m [facility], [address], [place], [place], [address] , [place] tel: [phone] [facility] Sinus symptoms (chief complaint) Acute allergic rhinitis 2 No Information Offic/outpt E&m [facility], [address], [place], [place], [address] , [place] tel: [phone] [facility] congestion/ rhinitis (chief complaint) Nasal congestionVira l URI 2 No Information Offic/outpt E&m [facility] [facility], [address], [place], [place], [address] , [place] tel: [phone] [facility] Congestion/ rhinitis (chief complaint) Sinusitis, bacterialOther specified bacterial agents as the cause of diseases classified elsewhereGener alized headaches 2 John GUILLEN Bernie. [address], [place], [address], [place]. tel:[phone] Referring Provider: Bernie GUILLEN, [address], [place], [address] . tel:[phone] Offic/outpt E&m [facility], [address], [place], [place], [address] , [place] tel: [phone] [facility] COVID-19 Evaluation (chief complaint) Contact with and (suspected) exposure to covid-19Acute non-recurrent pansinusitis 1 No Information Offic/outpt E&m Estab Mod-hi 2 [facility], [address], [place], [place], [id number] , [place] tel:[phone] [facility] COVID-19 Evaluation (chief complaint) Contact with and (suspected) exposure to covid-19 1 Heath BECKERP Paolo. [address], [place], [place], [address], [place]. [phone] Offic/outpt E&m [facility] 2 [facility], [address], [place], [place], [id number] , [place] tel: [phone] [facility] COVID-19 Evaluation (chief complaint) COVID-19 virus test result unknownAcute non-recurrent maxillary sinusitis 0 No Information Offic/outpt E&m [facility], [address], [place], [place], [address] , [place] tel:[phone] [facility] Abdominal pain (chief complaint) Abdominal pain affecting pregnancyUnspe cified abdominal pain 9 Heath BECKERP Paolo. [address], [facility] [address], [place], [address], [place]. tel:[phone] Family History Family Member Type Diagnosis Age At Onset No Information Payers Payer name Insurance type Covered republican ID Authoriza tion(s) No Information Social History Type Description Quantity Date Captured Comments Alcohol Use Details Unknown Caffeine Use Details Unknown Tobacco Use Status No Information Smoking Status No Information Sex Female Chief Complaint And Reason For Visit No Information Reason For Referral Reason For Referral No Information Plan Of Treatment Date Type Action Status Referral Ordered: Referrals: Emergency Medicine. Evaluate and treat ordered Patient Education Viral Respirat ory Infection: Care Instructions completed Patient Education Influenza (Flu): Care I nstructions completed Patient Education Coronavirus Di sease (COVID-19): Care Instructions completed Patient Education Painful Menstr ual Cramps: Care Instructions completed Patient Education Viral Respirat ory Infection: Care Instructions completed Patient Education Sinusitis: Care Instruc tions completed Future Order: Lab Order Culture, throat ([id number]), Collected on: , Sent on: Sent History Of Present Illness Encounter Date Complaint History Of Prese nt Illness Congestion/rhinitis Onset: sudde n. Severity: mild-moderate. The patient describes the cough as non-productive. It occurs persistently. The problem has not changed. There are no aggravating factors. There are no relieving factors. Associated symptoms include cough, fatigue and nasal congestion. Pertinent negatives include chills, dyspnea, dyspnea on exertion, epistaxis, fever, heartburn, hemoptysis, hoarseness, night sweats, pleuritic pain, post-nasal drainage, rhinitis, rhinorrhea, sinus pressure, sore throat, weight loss and wheezing. COVID-19 Evaluation Onset of sym ptoms was suddenly. The duration is 5 Days. Symptoms are mild-moderate. Recently the condition has no change. Episodes occur daily. The patient notes steady. Context: No known exposure to COVID-19 but lives in a community w/known transmission. The patient presents with chills, cough, fatigue, myalgia, nasal congestion and runny nose. The patient does not present with abdominal pain, anorexia, arthralgia, back pain, diarrhea, fever, generalized weakness, headache, loss of smell, lymphadenopathy, nausea, shortness of breath, sore throat, change in taste or vomiting. She denies a history of Age > 65, BMI > 40, Cardiovascular disease, Chronic kidney disease, Chronic lung disease, Immunocompromised, Hypertension, Diabetes, Travel. Denies aggravating factors. The symptom(s) is/are relieved by rest. COVID-19 Evaluation Onset of sym ptoms was suddenly. The duration is 2 Days. Symptoms are mild-moderate. Episodes occur daily. The patient notes fluctuating. Context: No known exposure to COVID-19 but lives in a community w/known transmission. The patient presents with cough, myalgia, nasal congestion, nausea and runny nose. The patient does not present with abdominal pain, anorexia, arthralgia, back pain, chills, diarrhea, fatigue, fever, generalized weakness, headache, loss of smell, lymphadenopathy, shortness of breath, sore throat, change in taste or vomiting. She denies a history of Age > 65, BMI > 40, Cardiovascular disease, Chronic kidney disease, Chronic lung disease, Immunocompromised, Hypertension, Diabetes, Travel. Denies aggravating factors. Denies relieving factors. COVID-19 Evaluation Onset of sym ptoms was suddenly. The duration is 4 Days. Symptoms are mild-moderate. Episodes occur daily. The patient notes fluctuating. Context: Known exposure to COVID-19 at work/school. The patient presents with cough, headache, myalgia, nasal congestion, runny nose and shortness of breath. The patient does not present with abdominal pain, anorexia, arthralgia, back pain, chills, diarrhea, fatigue, fever, generalized weakness, loss of smell, lymphadenopathy, nausea, sore throat, change in taste or vomiting. She denies a history of Age > 65, BMI > 40, Cardiovascular disease, Chronic kidney disease, Chronic lung disease, Immunocompromised, Hypertension, Diabetes, Travel. Symptom is aggravated by mild activity (eg. walking). Denies relieving factors. Vaginal bleeding Onset: sudden. Severity level is mild-moderate clot(s). Duration is 3 Days. Location/source of the bleeding is uterine. The client describes it as clotting. The problem is chronic. Denies aggravating factors. Denies relieving factors. Associated symptoms include abdominal pain, cramps and nausea. Pertinent negatives include back pain, bloating, bruising, constipation, diarrhea, dizziness, dyspnea, fatigue, headache, pallor, pelvic pain and swelling. 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 REPORTS THIS PERIOD IS SIMILIAR TO OTHERS. PT REQUESTING WORK NOTE, AND NAUSEA MEDICATION. PT REPORTS ONLY USING MUSCLE RELAXER AND HEATING PAD AT NIGHT. NOT TAKING TYLENOL OR IBUPROFEN. COVID-19 Evaluation Onset of sym ptoms was suddenly. The duration is 1 Day. Symptoms are mild-moderate. Episodes occur daily. The patient notes fluctuating. Context: Known exposure to COVID-19 at work/school and Sent by employer for testing. The patient presents with headache. The patient does not present with abdominal pain, anorexia, arthralgia, back pain, chills, cough, diarrhea, fatigue, fever, generalized weakness, loss of smell, lymphadenopathy, myalgia, nasal congestion, nausea, runny nose, shortness of breath, sore throat, change in taste or vomiting. She denies a history of Age > 65, BMI > 40, Cardiovascular disease, Chronic kidney disease, Chronic lung disease, Immunocompromised, Hypertension, Diabetes, Travel. Denies aggravating factors. The symptom(s) is/are relieved by nsaid. Sinus symptoms The client prese nts with symptoms that began gradually and have lasted 3 Days. Today the client complains of fatigue and sinus pain. Associated symptoms include chronic cough, nasal congestion and sinus pressure. Pertinent negatives include cough, fatigue, fever and nasal drainage. Comments: Lakesha ram reports she is considering sinus surgery and reports last year she was treated 7x for a sinus infection.She still does not have fever, mucopurulence, facial swelling or indications for bacterial source, discussed need for antihistamines, saline washes and decongestants Comments: Woke u p feeling like razor blades in nose and throat, feels congested, headache. Denies fever, dyspnea or cough. 1 day of symptomsFeels sleepy, achy and not well congestion/rhinitis Onset: sudde n. Severity: moderate. There is no cough present. The problem has not changed. Associated symptoms include nasal congestion, rhinorrhea and sore throat. Pertinent negatives include cough, fatigue and fever. Congestion/rhinitis Onset: 5 day s ago. Severity: mild-moderate. There is no cough present. It occurs persistently. The problem has become gradually worse. There are no aggravating factors. There are no relieving factors. Associated symptoms include nasal congestion and sinus pressure. Pertinent negatives include chills, cough, dyspnea, fatigue, fever and wheezing. 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 PT STATES THAT HER HEADACHES AND PALPITATIONS OFTEN HAPPEN TOGETHER. PT REPORTS ALLERGIES BUT THAT HER CONGESTION GOT CONSIDERABLY WORSE THIS 5 DAYS. COVID-19 Evaluation Onset of sym ptoms was gradually. Context: No known exposure to COVID-19 but lives in a community w/known transmission. The patient presents with loss of smell and change in taste. The patient does not present with abdominal pain, anorexia, arthralgia, back pain, chills, cough, diarrhea, fatigue, fever, generalized weakness, headache, lymphadenopathy, myalgia, nasal congestion, nausea, runny nose, shortness of breath, sore throat or vomiting. Denies aggravating factors. The symptom(s) is/are relieved by rest. COVID-19 Evaluation Onset of sym ptoms was gradually. The duration is 3 Days. Symptoms are mild-moderate. Episodes occur daily. The patient notes fluctuating. Context: No known exposure to COVID-19 but lives in a community w/known transmission. The patient presents with cough, headache, nasal congestion, runny nose and sore throat. The patient does not present with abdominal pain, anorexia, arthralgia, back pain, chills, diarrhea, fatigue, fever, generalized weakness, loss of smell, lymphadenopathy, myalgia, nausea, shortness of breath, change in taste or vomiting. She denies a history of Age > 65, BMI > 40, Cardiovascular disease, Chronic kidney disease, Chronic lung disease, Immunocompromised, Hypertension, Diabetes, Travel. Denies aggravating factors. The symptom(s) is/are relieved by rest. COVID-19 Evaluation Onset of sym ptoms was gradually. Context: No known exposure to COVID-19 but lives in a community w/known transmission. The patient presents with cough, headache, nasal congestion and runny nose. The patient does not present with abdominal pain, anorexia, arthralgia, back pain, chills, diarrhea, fatigue, fever, generalized weakness, loss of smell, lymphadenopathy, myalgia, nausea, shortness of breath, sore throat, change in taste or vomiting. Denies aggravating factors. The symptom(s) is/are relieved by rest. Abdominal pain Onset: sudden. S everity is moderate. Duration is 1 Day. It occurs randomly. The problem is worse. Location is LLQ, RLQ. There is no radiation. The patient describes it as sharp. Context: no pattern noted. Denies aggravating factors. Relieving factors include change in position. Additional information: PT REPORTS THAT SHE HAD A POSITVE HCG TEST AT HOME. SHE DENIES VAGINAL BLEEDING BUT CRAMP IS WORSE THAN MENSTRAL CRAMP. Abdominal pain (comments) PT REP ORTS HER LAST MENSES WAS IN JUNE. SHE WAS ON DEPO LAST INJECTION IN MARCH I THINK. Functional Status Date Functional Assessmen t No Information Instructions Date Instruction Additional Infor brittany EDUCATIONAL HANDOUT PROVIDED. ALWAYS GO BY BAT LATHE OPERATOR DIRECTIONS FOR OTC MEDICATIONS. Related to URI with cough and congestion EDUCATIONAL HANDOUT PROVIDED. Re lated to Influenza A There is no cure for the common cold. Antibiotics may be used to treat signs of a secondary infection, but they do not treat the cold virus. Get plenty of rest. Drink plenty of fluids, at least 8 large glasses of fluid a day. Use salt water gargle, cough drops or throat sprays to relieve throat pain. Use saline nose drops or spray to help ease congestion. Take over the counter medicines as needed to ease your signs. Common medicines used to treat signs of a cold include: Antihistamines can dry secretions in your nose and lungs. Decongestants: Use nasal spray decongestants for up to three days only. Longer use can make congestion worse. Talk to your pharmacist before use if you have high blood pressure, , heart disease, diabetes or an enlarged prostate. Cough suppressant, such as dextromethorphan. Expectorant, sometimes called mucolytic, such as guaifenesin. Honey outperforms many of the over the counter cough supressants Related to Acute cough IF YOU ARE POSITIVE, BASED ON NEW CDC GUIDELINES, ISOLATE AT LEAST 5 DAYS FROM SYMPTOM ONSET. ONCE NO FEVERS FOR 24 HOURS WITHOUT MEDICATIONS AND SIGNIFICANT IMPROVEMENT IN RESPIRATORY SYMPTOMS (COUGH AND CONGESTION).REST. INCREASE FLUIDS. TYLENOL AND IBUPROFEN NEEDED FOR FEVERS OR BODY ACHES. MAY TAKE AN OVER THE COUNTER COUGH MEDICATION SUCH DELSYM OR MUCINEX DM NEEDED. GENERIC IS OK. MAY TAKE AN OVER THE COUNTER DECONGESTANT (ONE THAT YOU HAVE TO ASK THE PHARMACIST FOR LIKE SUDAFED-GENERIC IS OK) NEEDED.YOU MUST WEAR A MASK AT ALL TIMES FOR 10 FULL DAYS AFTER SYMPTOMS STARTED. IF YOUR SYMPTOMS WORSEN OR BECOMES SEVERE, GO TO THE ER Related to Contact with and (suspected) exposure to COVID-19 IF YOU ARE POSITIVE, BASED ON NEW CDC GUIDELINES, ISOLATE AT LEAST 5 DAYS FROM SYMPTOM ONSET. ONCE NO FEVERS FOR 24 HOURS WITHOUT MEDICATIONS AND SIGNIFICANT IMPROVEMENT IN RESPIRATORY SYMPTOMS (COUGH AND CONGESTION).REST. INCREASE FLUIDS. TYLENOL AND IBUPROFEN NEEDED FOR FEVERS OR BODY ACHES. MAY TAKE AN OVER THE COUNTER COUGH MEDICATION SUCH DELSYM OR MUCINEX DM NEEDED. GENERIC IS OK. MAY TAKE AN OVER THE COUNTER DECONGESTANT (ONE THAT YOU HAVE TO ASK THE PHARMACIST FOR LIKE SUDAFED-GENERIC IS OK) NEEDED.YOU MUST WEAR A MASK AT ALL TIMES FOR 10 FULL DAYS AFTER SYMPTOMS STARTED. IF YOUR SYMPTOMS WORSEN OR BECOMES SEVERE, GO TO THE ER Related to Contact with and (suspected) exposure to COVID-19 PLEASE USE A DECONGE STANT MEDICATION (E.G. MEDICATIONS CONTAINING PSUEDOPHEDRINE (SUDAFED (YOU MUST ASK THE PHARMACIST FOR THIS)) NEEDED FOR THE NEXT 2-3 DAYS FOR NASAL CONGESTION SYMPTOMS. ALSO ADD MUCINEX/GUAIFENESIN WITH PLENTY OF FLUIDS TO THIN THE MUCUS AND FACILITATE DRAINAGE. CONSIDER THE USE OF AN OTC DECONGESTANT NASAL SPRAY (LIKE AFRIN (GENERIC IS FINE)) TWICE DAILY 2X/DAY FOR 1-3 DAYS. DO NOT USE FOR MORE THAN 3 DAYS. Related to Sinusitis, bacterial FOLLOW UP WITH OB/GY N. MAY ALTERNATE IBUPROFEN AND TYLENOL USE WITH YOUR HEATING PAD USE. Related to Dysmenorrhea IF YOU ARE POSITIVE, BASED ON NEW CDC GUIDELINES, ISOLATE AT LEAST 5 DAYS FROM SYMPTOM ONSET. ONCE NO FEVERS FOR 24 HOURS WITHOUT MEDICATIONS AND SIGNIFICANT IMPROVEMENT IN RESPIRATORY SYMPTOMS (COUGH AND CONGESTION).REST. INCREASE FLUIDS. TYLENOL AND IBUPROFEN NEEDED FOR FEVERS OR BODY ACHES. MAY TAKE AN OVER THE COUNTER COUGH MEDICATION SUCH DELSYM OR MUCINEX DM NEEDED. GENERIC IS OK. MAY TAKE AN OVER THE COUNTER DECONGESTANT (ONE THAT YOU HAVE TO ASK THE PHARMACIST FOR LIKE SUDAFED-GENERIC IS OK) NEEDED.YOU MUST WEAR A MASK AT ALL TIMES FOR 10 FULL DAYS AFTER SYMPTOMS STARTED. IF YOUR SYMPTOMS WORSEN OR BECOMES SEVERE, GO TO THE ER Related to Contact with and (suspected) exposure to COVID-19 Take otc allergy med s daily, you may need benadryl at night in addition to flonase, may take a decongestant like afrin or sudafed to help nasal congestion Related to Acute allergic rhinitis DRINK COOL LIQUIDS A ND TRY COOL SOFT FOODS TO SOOTHE THROAT (JELL-O, ICE CREAM, POPSICLES, YOGURT). OLDER CHILDREN AND ADULTS MAY USE CHLORASEPTIC SPRAY OR THROAT LOZENGES TO HELP SOOTHE THE THROAT WELL. GARGLE WITH SALT WATER EVERY FEW HOURS NEEDED FOR SORE THROAT. USE 1 TEASPOON OF SALT IN 8-12 OUNCES OF WARM WATER. CONSIDER USING A SALINE NASAL RINSE 1-2X/DAY FOR THE NEXT 2-3 DAYS UNTIL YOUR NASAL SYMPTOMS HAVE IMPROVED. USE ONLY DISTILLED WATER, STERILE WATER OR BOIL TAP WATER FOR A MINIMUM OF 8 MINUTES AND COOL TO ROOM TEMPERATURE BEFORE USE. IT MAY BE MORE COMFORTABLE TO WARM THE SALINE SOLUTION A LITTLE IN THE MICROWAVE BEFORE USING, HOWEVER DO NOT USE IF WATER IS HOT) PLEASE USE A DECONGESTANT MEDICATION (E.G. MEDICATIONS CONTAINING PSUEDOPHEDRINE (SUDAFED (YOU MUST ASK THE PHARMACIST FOR THIS)) NEEDED FOR THE NEXT 2-3 DAYS FOR NASAL CONGESTION SYMPTOMS. ALSO ADD MUCINEX/GUAIFENESIN WITH PLENTY OF FLUIDS TO THIN THE MUCUS AND FACILITATE DRAINAGE. CONSIDER THE USE OF AN OTC DECONGESTANT NASAL SPRAY (LIKE AFRIN (GENERIC IS FINE)) TWICE DAILY 2X/DAY FOR 1-3 DAYS. DO NOT USE FOR MORE THAN 3 DAYS. Related to Nasal congestion SELF CARETry the fol lowing measures to help reduce congestion in your sinuses:oApply a warm, moist washcloth to your face several times a day.oDrink plenty of fluids to thin the mucus.oInhale steam 2 - 4 times per day (for example, sitting in the bathroom with the shower running).oSpray with nasal saline several times per day.oUse a humidifier.oUse a Neti pot to flush the sinuses.Be careful with gfvj-des-sozsyci spray nasal decongestants. They may help at first, but using them for more than 3 - 5 days can actually worsen nasal congestion.Also, for sinus pain or pressure:oAvoid temperature extremes, sudden changes in temperature, and bending forward with your head down.oAvoid flying when you are congested. Related to Sinusitis, bacterial TAKE MEDS PRESCRI BEDFOR COLD SYMPTOMS TAKE ZYRTEC OR CLARITIN DAILY IN THE MORNING, BENADRYL AT NIGHT (ANTIHISTAMINES HELP DRY UP THE FLUID/CONGESTION); START USING FLONASE DAILY, YOU WON'T EVEN NOTICE ITS WORKING FOR 7 DAYS OR MORE; TAKE SUDAFED OR MUCINEX D FOR YOUR DECONGESTANT (CORICIDIN HBP IF YOU HAVE HIGH BLOOD PRESSURE) STAY HOME, AVOID CROWDS, COVER MOUTH WHEN SNEEZING/COUGHING, WASH HANDS FREQUENTLY ETCGO TO [facility] FOR SEVERE SHORTNESS OF BREATH/DISTRESS, CHEST PAIN, HIGH FEVERS NOT RESPONDING TO MEDS OR ANYTHING THAT CONCERNS YOU GARGLE WITH SALT WATER EVERY FEW HOURS NEEDED FOR SORE THROAT. USE 1 TEASPOON OF SALT IN 8-12 OUNCES OF WARM WATER. DRINK COOL LIQUIDS AND TRY COOL SOFT FOODS TO SOOTHE THROAT (JELL-O, ICE CREAM, POPSICLES, YOGURT). OLDER CHILDREN AND ADULTS MAY USE CHLORASEPTIC SPRAY OR THROAT LOZENGES TO HELP SOOTHE THE THROAT WELL. CONSIDER USING A SALINE NASAL RINSE 1-2X/DAY FOR THE NEXT 2-3 DAYS UNTIL YOUR NASAL SYMPTOMS HAVE IMPROVED. USE ONLY DISTILLED WATER, STERILE WATER OR BOIL TAP WATER FOR A MINIMUM OF 8 MINUTES AND COOL TO ROOM TEMPERATURE BEFORE USE. IT MAY BE MORE COMFORTABLE TO WARM THE SALINE SOLUTION A LITTLE IN THE MICROWAVE BEFORE USING, HOWEVER DO NOT USE IF WATER IS HOT) Related to Acute non-recurrent pansinusitis WE'LL CALL WITH [facility] RESULTS FOR COLD SYMPTOMS TAKE ZYRTEC OR CLARITIN DAILY IN THE MORNING, BENADRYL AT NIGHT (ANTIHISTAMINES HELP DRY UP THE FLUID/CONGESTION); START USING FLONASE DAILY, YOU WON'T EVEN NOTICE ITS WORKING FOR 7 DAYS OR MORE; TAKE SUDAFED OR MUCINEX D FOR YOUR DECONGESTANT (CORICIDIN HBP IF YOU HAVE HIGH BLOOD PRESSURE) STAY HOME, AVOID CROWDS, COVER MOUTH WHEN SNEEZING/COUGHING, WASH HANDS FREQUENTLY ETC GO TO [facility] FOR SEVERE SHORTNESS OF BREATH/DISTRESS, CHEST PAIN, HIGH FEVERS NOT RESPONDING TO MEDS OR ANYTHING THAT CONCERNS YOU GARGLE WITH SALT WATER EVERY FEW HOURS NEEDED FOR SORE THROAT. USE 1 TEASPOON OF SALT IN 8-12 OUNCES OF WARM WATER. DRINK COOL LIQUIDS AND TRY COOL SOFT FOODS TO SOOTHE THROAT (JELL-O, ICE CREAM, POPSICLES, YOGURT). OLDER CHILDREN AND ADULTS MAY USE CHLORASEPTIC SPRAY OR THROAT LOZENGES TO HELP SOOTHE THE THROAT WELL. CONSIDER USING A SALINE NASAL RINSE 1-2X/DAY FOR THE NEXT 2-3 DAYS UNTIL YOUR NASAL SYMPTOMS HAVE IMPROVED. USE ONLY DISTILLED WATER, STERILE WATER OR BOIL TAP WATER FOR A MINIMUM OF 8 MINUTES AND COOL TO ROOM TEMPERATURE BEFORE USE. IT MAY BE MORE COMFORTABLE TO WARM THE SALINE SOLUTION A LITTLE IN THE MICROWAVE BEFORE USING, HOWEVER DO NOT USE IF WATER IS HOT) Related to COVID-19 virus test result unknown HAVING CRAMPING WITH A POSITIVE I HAVE CONCERNS FOR POSSIBLE ECTOPIC . I RECOMMEND THAT YOU GO TO ER FOR FURTHER EVALUATION Related to Abdominal pain affecting Assessments Type Assessment Date No Information Patient Care Teams Name Effective Dates (start - stop) Status Members No Information
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
[2025-07-24 22:37] VITALS: BP 145/57; PULSE 77; RESP 18; TEMP 36.7; O2SAT 99
[2025-07-24 23:28] LABS: BEDSIDEPREGUCG Negative (Negative)
--- OUTSIDE RECORDS SUMMARY | 2025-07-24 23:50 | XMS_ITS | Clinical Summary ---
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 Interpretation: Non- Females: < 5 mIU/mL Post-Menopausal Females: < 7 mIU/mL This assay is cleared for use in the early detection of only. It is not approved for any other uses such as tumor marker screening, tumor marker monitoring, etc. and should not be used for any other purposes. Blood BLOOD SPECIMEN / Unknown Venipuncture / Unknown 07/16/2025 12:43 AM CDT 07/16/2025 12:52 AM CDT Rigo Nielsen MD LAB - CHEMISTRY ORDERABLES Final Result Performing Organization Address [facility]/ZIP Co de Phone Number [address] [address], [place] [phone] * LIPASE BLOOD (07/16/2025 12:43 AM CDT) Lipase 34 8 - 78 U/L 07/16/2025 1:26 AM CDT [facility] Blood BLOOD SPECIMEN / Unknown Venipuncture / Unknown 07/16/2025 12:43 AM CDT 07/16/2025 12:52 AM CDT Narrative [facility] - 07/16/2025 1:26 AM CDT Lipase results from the [employer] Al[employer] analyzer may not be comparable with other methodologies. Rigo Nielsen MD LAB - CHEMISTRY ORDERABLES Final Result [address] [address], [place] [phone] * CK BLOOD (07/16/2025 12:43 AM CDT) Pathologist [facility] CK Total 34 30 - 200 U/L 07/16/2025 1:26 AM CDT [facility] Blood BLOOD SPECIMEN / Unknown Venipuncture / Unknown 07/16/2025 12:43 AM CDT 07/16/2025 12:52 AM CDT Rigo Nielsen MD LAB - CHEMISTRY ORDERABLES Final Result [address] [address], [place] [phone] * ALCOHOL ETHYL BLOOD (07/16/2025 12:43 AM CDT) Pathologist [facility] Ethanol (mg/dL) <10 <10 mg/dL 1:26 AM CDT [facility] Ethanol Calculated (g/dL) <0.010 <=0.010 g/dL 07/16/2025 1:26 AM CDT [facility] Blood BLOOD SPECIMEN / Unknown Venipuncture / Unknown 07/16/2025 12:43 AM CDT 07/16/2025 12:52 AM CDT Narrative [facility] - 07/16/2025 1:26 AM CDT Ethanol Interp <10: None Detected. Depression of INSTRUMENT INSPECTOR: >100 mg/dl Potentially Critical: >250 mg/dl Potentially Fatal >400 mg/dl Ethanol in the patient's blood will contribute to the osmolar gap. Ethanol's contribution to the osmolar gap can be estimated by dividing the concentration of ethanol in mg/dL by 4.6. This test is for clinical use only and does not equal a TONI for legal purposes. us Rigo Nielsen MD LAB - CHEMISTRY ORDERABLES Final Result [facility] [address] [place] [address], [facility] [phone] from Last 3 Months Additional Health Concerns Infection Onset Date Last Indicated ESBL Hx Comment:Added from external infection. Source: [facility]. 05/14/2023 Insurance [facility] [employer] LIABILITY [facility]
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
--- OUTSIDE RECORDS SUMMARY | 2025-07-24 23:50 | XMS_ITS | Clinical Summary ---
Author Organization [facility] Address [address] [place] [address] Care Team Providers Care Abrasive Mixer Name Role Phone No, Physician Primary Care Provider [phone] Allergies No known active allergies Medications bacitracin 500 unit/gram ointment Apply topically 2 (two) times a day 120 g 3 Active guaiFENesin (ROBITUSSIN) syrup 100 mg/5 mLIndications:C ough Take 5-10 mL (100-200 mg total) by mouth every 4 (four) hours as needed for cough 120 mL 3 Active Active Problems Problem Noted Date Diagnosed Date Left-sided weakness 02/03/2025 Positive GBS test 05/18/2023 Immunizations Immunization Administration Dates Next Due Tdap 09/09/2023,05/18/2023 Surgical History Surgery Date Site/Laterality Comments APPENDECTOMY CHOLECYSTECTOMY OVARIAN CYST REMOVAL TONSILLECTOMY/ADENOIDECTOMY Social History Tobacco Use Types Packs/Day Years Used Date Smoking Tobacco: Never Tobacco Cessation:Counseling Given: Not Answered Personal Safety Answer Date Recorded Have you ever been in or are you currently in a harmful physical or emotional relationship or is someone making you feel afraid or unsafe? Denies 02/03/2025 Comments No Sex and Gender Information Value Date Recorded Sex Assigned at Not on file Legal Sex Female 9:54 PM CDT Gender Identity Not on file Sexual Orientation Not on file Obstetrics History Para Term AB IAB SAB Ectopic Multiple Livin g Live Births 2 1 1 1 1 Date Outcome GA Total Labor Labor/2nd/3rd Weight Sex Type Anes PTL Vi A1 A5 Name Clin 017 Term F Vagina l None N Livin g Delivery Location:[place] Last Filed Vital Signs Vital Sign Reading Time Taken Comments Blood Pressure 115/73 02/03/2025 2:30 PM CDT Pulse 69 02/03/2025 2:30 PM CDT Temperature 37 C (98.6 F) 02/03/2025 2:48 PM CDT Respiratory Rate 14 02/03/2025 2:30 PM CDT Oxygen Saturation 97% 02/03/2025 2:30 PM CDT Inhaled Oxygen Concentration - - Weight 83 kg (182 lb 14.4 oz) 02/03/2025 1:19 PM CDT Height 170.2 cm (5' 7) 02/03/2025 1:51 PM CDT Body Mass Index 28.65 02/03/2025 1:19 PM CDT Plan of Treatment Health Maintenance Due Date Last Done Comments Cervical Cancer Screening 1996 Depression Screening 1996 Varicella Vaccines (1 of 2 - 13+ 2-dose series) 2009 Hepatitis B Screening 2014 Regular Well Visit/Exam 18-64 2014 HPV Vaccines (1 - 3-dose SCD M series) 2023 Influenza Vaccine (#1) 2025 DTaP/Tdap/Td Vaccine (3 - Td or Tdap) 09/09/2033 09/09/2023, 05/18/2023 Hepatitis C Screening Completed 05/14/2023 Pneumococcal vaccine <65 Aged Out No longer eligible based on patient's age to complete this topic Procedures Procedure Name Priority Date/Time Associated Diagnosis Comments HEPATITIS C RNA, QUANTITATIVE, PCR STAT 05/14/2023 10:51 PM CDT from Last 3 Months or Most Recently Relevant to Health Maintenance Results * Hepatitis C (HCV) RNA PCR, quantitative (05/14/2023 10:51 PM CDT) Pathologist [facility] HCV RNA result Not Detected [facility] Comment: The quantifiable range of this assay is 15 IU/mL to 100,000,000 IU/mL (1.18 log IU/mL to 8.00 log IU/mL). Testing was performed by the [employer] HCV Test ([email or web address] Testing performed at [facility] Current Interpretive Data was last revised on 2021 Blood 05/14/2023 10:5 1 PM CDT 05/14/2023 11:00 PM CDT Marlene Jackson NP LAB MICROBIOLOGY - GENERAL OR DERABLES Final Result [facility] [place] [address] from Last 3 Months or Most Recently Relevant to Health Maintenance Insurance [facility] [place] [address] [place] [address] [facility] Care Teams Abrasive Mixer Relationship Specialty Start Date End Date No, Physician PCP - General 09/09/23
--- OUTSIDE RECORDS SUMMARY | 2025-07-24 23:51 | XMS_ITS | Patient Health Record ---
Author Organization [facility] Mekhi bartlett Billing Info Address [address] [place] [address] Support Name Relationship Address Phone Steve Harper Emergency Contact [address] [place] [address] Steve Stacy Guarantor Unknown [phone] Reason For Referral No Information Social History Tobacco Use: Social History Observation Description Date Details (start date - stop date) Never Smoker NA - NA Tobacco Status: Question Answer Notes Patient is a never smoker Problems Problem Type SNOMED Code ICD Code Onset Dates Problem Status W/U Status Risk Notes Problem 48018604 Breakthrough bleeding (N92.1) Active confirmed Problem 176416995 LLQ pain (R10.32) Active confirmed Problem 70916195 Breakthrough bleeding on depo provera (N92.1) Active confirmed Plan Of Treatment No Information Insurance Providers Payer Name Payer Address Payer Phone Subscriber Number Group Number Insured Name Patient Relationship to Insured Coverage Start Date Coverage End Date [facility] [id number] [address] [place], [place] [id number] Leroy Wilson Spouse - patient is the spouse of the insured Medical (General) History Medical History History ICD Code Endometriosis Ovarian cysts hypothyroid Anxiety Surgical History Surgery Date(Month/Year) Appendix removed 2005 DX L/S 2016 gallbladder T&A cysts removal Hospitalization History Reason Date(Month/Year) Childbirth
--- OUTSIDE RECORDS SUMMARY | 2025-07-24 23:51 | XMS_ITS | Encounter Summary ---
Author Organization [facility] Address [address] [place] [address] Care Team Providers Care Watch Crystal Edge Grinder Name Role Phone Unknown, Notinfile Primary Care Provider Unavail able No, Physician Primary Care Provider [phone] Encounter Details Date Type Department Care Team (Late st Contact Info) Description 05/15/2023 Treatment [facility] PATH[facility]Y [address] [address] Kodi Clrak MD Social History Tobacco Use Types Packs/Day Years Used Date Smoking Tobacco: Never Comments Yes Sex and Gender Information Value Date Recorded Sex Assigned at Not on file Legal Sex Female 9:54 PM CDT Gender Identity Not on file Sexual Orientation Not on file documented as of this encounter Progress Notes * Koid Clark MD - 05/15/2023 4:16 PM CDT Transfusion Medicine Blood Bank Note Patient Information: ABO/Rh: O negative Antibody screen: Positive Previous antibodies: No known antibodies Antibodies identified: passive anti-D Additional testing performed: None Relevant Patient History: Stacy Wilson is a 27 y.o. woman at 38w1d who presents for complaints of ctx and LOF. Testing Information: The antibody screen was positive. Antibody identification demonstrated antibodies against the D antigen in the patient's plasma. Additional testing was not performed. Phenotyping showed that the patient's red blood cells are D antigen negative. Detection of anti-D in this patient's plasma is consistent with the patient's known history of RhIgadministration on 03/28/2023 and is therefore categorized as a passive anti-D. All common, clinically significant antibodies have been ruled out. Clinical Relevance: RhIg is a biologic prepared from human plasma that consists of concentrated antibodies directed against the D antigen on red blood cells. Anti-D antibodies may be implicated in hemolytic transfusion reactions with extravascular hemolysis and hemolytic disease of the fetus and . Therefore, anti-D antibodies attributable to RhIg administration may generally be considered clinically significant as long as the passively acquired anti-D is present in the patient's plasma. Therapeutic Relevance: ABO/Rh and crossmatch compatible red blood cell units will be provided for future transfusions. Contact Information: Please contact the [facility] Blood Bank with any questions. This report has been prepared by: Kodi Clark MD Cosigned by Marino Rodriguez MD at 05/19/2023 4:12 PM CDT Associated attestation - Marino Rodriguez MD - 05/19/2023 4:12 PM CDT Attestation: I have personally reviewed the antibody result and agree with the interpretation contained in this written blood bank report. Marino Rodriguez MD documented in this encounter Plan of Treatment Not on file documented as of this encounter Visit Diagnoses Not on filedocumented in this encounter Additional Health Concerns Infection Onset Date Last Indicated Resolved Time MDR gram neg/ESBL Comment:Patients who received care at a healthcare facility outside of the [place] will be placed in Contact Precautions until infection or colonization with specific highly resistant bacteria can be ruled out. Infection Prevention will arrange screening. Please contact Infection Prevention. 05/14/2023 05/14/2023 02/03/2025 2:31 PM C DT COVID: Suspected 09/11/2023 09/11/2023 09/11/2023 4:13 AM COMPOSING ROOM SUPERVISOR COVID: Suspected 11/14/2023 11/14/2023 11/15/2023 2:08 AM COMPOSING ROOM SUPERVISOR documented as of this encounter Care Teams Watch Crystal Edge Grinder Relationship Specialty Start Date End Date Unknown, Notinfile PCP - General 05/14/23 09/08/23 No, Physician PCP - General 09/09/23 documented as of this encounter
[2025-07-24] MEDS: ACETAMINOPHEN 500 MG TABLET 1000 MG PO (23:52)
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
[2025-07-25 02:12] VITALS: BP 121/83; PULSE 88; RESP 18; O2SAT 100
== END 2025-07-25 02:12 | disposition home or self-care (01) ==
PROVIDERS: Emergency Provider Physician Assistant
DX: S16.1XXA Strain of muscle, fascia and tendon at neck level, initial encounter (principal); N80.9 Endometriosis, unspecified; E03.9 Hypothyroidism, unspecified; Z90.49 Acquired absence of other specified parts of digestive tract; V49.40XA Driver injured in collision with unspecified motor vehicles in traffic accident, initial encounter
CPT/HCPCS: 70450; 72125; 72128; 72131; 73030; 81025; 99284; A9270